=== PATIENT | female | born 1965 | race Caucasian/White ===

== ENCOUNTER → 2016-11-15 | Outpatient (CLI) | payer OTHER ==
[~2016-11-15] MED LIST: ALPR-411 PO; CONJ.6255 PO; ESCI5TAB PO
--- NOTE | 2016-11-15 16:40 | MAMMOGRAPHY REPORT ---
BILATERAL DIGITAL SCREENING MAMMOGRAM WITH CAD: 11/15/2016 CLINICAL HISTORY: Routine screening. Patient has no complaints. TECHNIQUE: Current study was also evaluated with a Computer Aided Detection (CAD) system. Bilateral CC and MLO views including implant displaced views were obtained. COMPARISON: Comparison is made to exams dated: 11/10/2014 mammogram, 08/05/2013 mammogram, 07/12/2012 mamm ogram, 06/26/2011 mammogram, 11/16/2009 mammogram, and 11/15/2015 mammogram - [facility]. BREAST COMPOSITION: The tissue of both breasts is heterogeneously dense, which may obscure small mas ses. FINDINGS: No suspicious masses, calcifications, or areas of architectural distortion are noted in ei ther breast. There has been no significant interval change compared to prior exams. Bilateral prepec samara saline implants are stable in appearance. IMPRESSION: ACR BI-RADS CATEGORY 2: BENIGN There is no mammographic evidence of malignancy. A 1 year screening mammogram is recommended. The pa tient will receive written notification of the results. Approximately 10% of breast cancers are not detected with mammography. A negative mammographic report should not delay biopsy if a clinically suggestive mass is present. Anabelle Michaels M.D. /:11/15/2016 14:37:05 Float Nurse: Jessa ESPINOZA(Livier)(M), [facility] letter sent: Normal 1/2 BI-RADS Code: ACR BI-RADS Category 2: Benign
== END | disposition home or self-care (01) ==
LOC: C.MAMM 14:00
PROVIDERS: ATTEND Obstetrics & Gynecology
DX: Z12.31 Encounter for screening mammogram for malignant neoplasm of breast (principal)

== ENCOUNTER → 2016-12-11 | Outpatient (CLI) | payer OTHER | END | disposition home or self-care (01) | LOC: C.PAPS 11:16 | PROVIDERS: ATTEND Obstetrics & Gynecology | DX: Z01.419 Encounter for gynecological examination (general) (routine) without abnormal findings (principal) ==

== ENCOUNTER → 2017-05-29 | Outpatient (CLI) | payer OTHER ==
[2017-05-29 10:03] LABS: BLOOD UREA NITROGEN 17 mg/dl (7-18); BUN/CREATININE RATIO 24.3 (10-20); CALCIUM 9.7 mg/dl (8.5-10.1); CARBON DIOXIDE 30 mmol/L (21-32); CHLORIDE 101 mmol/L (98-107); CREATININE 0.71 mg/dl (0.60-1.20); GLUCOSE 111 mg/dl (70-99); POTASSIUM 4.1 mmol/L (3.5-5.1); SODIUM 134 mmol/L (136-145)
== END | disposition home or self-care (01) ==
LOC: C.LAB1850 08:51
PROVIDERS: ATTEND Nurse Practitioner Adult Health
DX: I10 Essential (primary) hypertension (principal); F41.9 Anxiety disorder, unspecified

== ENCOUNTER → 2018-01-08 | Outpatient (CLI) | payer OTHER ==
--- NOTE | 2018-01-09 13:39 | MAMMOGRAPHY REPORT ---
BILATERAL DIGITAL SCREENING MAMMOGRAM TOMOSYNTHESIS WITH CAD: 01/08/2018 CLINICAL HISTORY: Patient presents for routine screening. S/P bilateral augmentation. TECHNIQUE: Bilateral CC and MLO views of the breasts with and without implant displacement views were obtained. Tomosynthesis was also performed on the implant displaced views. Current study was also evaluated with a Computer Aided Detection (CAD) system. COMPARISON: Comparison is made to exams dated: 11/15/2016 mammogram, 11/15/2015 mammogram, 11/10/2014 ma mmogram, 08/05/2013 mammogram, 07/12/2012 mammogram, and 06/26/2011 mammogram - [facility] er. BREAST COMPOSITION: The tissue of both breasts is heterogeneously dense, which may obscure small mass es. FINDINGS: Bilateral subglandular saline implants are intact. No new suspicious mass, architectural di stortion or cluster of microcalcifications is seen. IMPRESSION: ACR BI-RADS CATEGORY 1: NEGATIVE There is no mammographic evidence of malignancy. A 1 year screening mammogram is recommended.( [id number]) The patient will receive written notification of the results. Some breast cancers are not detected with mammography. A negative mammographic report should not joan y biopsy if a clinically suggestive mass is present. Melissa Andersen M.D. ay/:01/08/2018 17:36:42 Order Processing Specialist: RT Praful(Livier)(Ricardo), [facility] letter sent: Normal 1/2 BI-RADS Code: ACR BI-RADS Category 1: Negative
== END | disposition home or self-care (01) ==
LOC: C.MAMM 13:53
PROVIDERS: ATTEND Obstetrics & Gynecology
DX: Z12.31 Encounter for screening mammogram for malignant neoplasm of breast (principal)

== ENCOUNTER 2024-12-24 17:57 | Inpatient (IN) ==
[2024-12-24] MEDS: SODIUM CHLORIDE 0.9% 1,000 ML IV SCH (18:27)
--- NOTE | 2024-12-24 18:35 | XRay Report ---
Chest radiograph, one view History: Weakness Comparison: None Findings: Single AP view of the chest performed. No focal consolidation or pleural effusion. No pneumothorax. The cardiomediastinal silhouette is within normal limits. Normal pulmonary vascularity. No evidence for lymphadenopathy. No visualized bony or soft tissue abnormality. Impression: Normal chest radiograph Electronically signed by Ulisses Vera 12-24-2024 6:35 PM
[2024-12-24 18:44] LABS: Hematocrit (blood only) 39.8 % (37.0-47.0); Hemoglobin 14.1 g/dl (12.0-16.0); Immature Granulocytes # (auto) 0.02 K/uL (0.01-0.20); Immature Granulocytes % (auto) 0.3 %; Mean Corpuscular Hemoglobin 30.6 pg (25.0-34.0); Mean Corpuscular Volume 86.3 fL (80.0-100.0); Platelet Count 306 K/uL (130-400); RDW Standard Deviation 37.4 fL (36.4-46.3); Red Blood Count 4.61 M/uL (4.20-5.40); White Blood Count 6.00 K/ul (4.8-10.8)
--- NOTE | 2024-12-24 18:44 | Emergency Department Note ---
Impression & Plan Alcohol withdrawal, Vomiting, Tachycardia, Alcohol abuse ED Provider Note NAME: NIKOLAY BARNES AGE: 59 SEX: F : 1965 ARRIVES VIA: Walk-In INFORMANT: [Patient] ED PROVIDER(S): [Constantine Wharton MD] CHIEF COMPLAINT: Detox request HISTORY OF PRESENT ILLNESS: The patient is a 59-year-old female who presents to the ER asking for alcohol detox. She typically drinks about a bottle of wine a day. She states that her dog and as a result, she was stressed and began drinking 2-3 bottles of wine a day about 3 days ago. She also has been drinking vanilla extract. Her last drink of alcohol was about 6.5 hours ago. She has been vomiting, she feels shaky, she feels like she is going through withdrawal. She knows that she has to stop drinking and she presents for help. She is not having chest pain, there has been no fever, no diarrhea, no cough or congestion, no abdominal pain. The patient has been through medical detox before, the last time was a few years ago. PMHx/PSHx/Social Hx: See Below PHYSICAL EXAM: GENERAL: Patient is in no acute distress. Somewhat anxious. HEENT: No acute trauma, normocephalic atraumatic, mucous membranes moist, no nasal congestion. NECK: No stridor, no adenopathy, no meningismus, trachea is midline. LUNGS: Clear to auscultation bilaterally, no wheeze, no rhonchi, breath sounds equal. HEART: Tachycardic, regular rhythm, no murmurs. ABDOMEN: Soft, nontender, no peritonitis. EXTREMITIES: No cyanosis, full range of motion of all the joints without pain or difficulty. NEUROLOGIC: Oriented x 3, no acute motor or sensory deficits, no focal weakness. There is some generalized tremor noted. SKIN: No jaundice, no diaphoresis. DIFFERENTIAL DIAGNOSIS: Alcohol withdrawal, dehydration, electrolyte imbalance, renal or liver failure, among others. EMERGENCY DEPARTMENT PROCEDURES: MEDICAL DECISION MAKING: There is no leukocytosis or concerning anemia. There is a normal platelet count. No coagulopathy. No renal failure or significant electrolyte abnormality. No concerning liver enzyme elevation. ECG showed a sinus tachycardia, no ischemia or dysrhythmia. Cardiac enzyme testing x 1 is not consistent with acute cardiac injury. Patient appears to be in a euthyroid state. Chest x-ray did not show pneumonia or CHF. Alcohol level was elevated at 208. On exam, the patient was a bit hypertensive, she was tachycardic, she seemed to be shaky and anxious. She appeared to have signs of early alcohol withdrawal. Patient received IV saline, 1.5 L. She was given IV thiamine and IV folate. She was IV Zofran, IV Ativan. The patient does seem to be showing some improvement. Her tachycardia is improving. However, given the circumstances, given her previous hallucinations, I do think a hospital stay would be warranted. I spoke with the patient and case management, the on-call hospitalist was consulted. Prior/Outside records/notes reviewed: None ECG per my interpretation: Indication was tachycardia. The ECG shows a sinus tachycardia with a rate of 101. There is no ST elevation, no PVCs. There is some baseline artifact. QTc was 438. Continuous Cardiac Monitoring per my interpretation: An order was placed for continuous cardiac monitoring. The monitor shows a rate of 105 with sinus tachycardia. Imaging/x-ray results per my interpretation: Chest x-ray does not show mediastinal widening, pneumonia or CHF. Chronic Medical/Social conditions affecting care: History of alcoholism Care/Management discussed with: Case management, the on-call hospitalist. Level of care consideration(s): After review of the information above and other included data: --I believe the patient requires escalation of care to admission Critical Care Note: I have personally spent 46 minutes of critical care time in the direct management of this patient. This includes bedside care, interpretation of diagnostic studies, and testing, discussion with consultants, patient, and family members, and other required patient management activities. This 46 minutes is in excess of all separately billable procedures. DISPOSITION: Admission Past Med/Surg History Problem List (Updated 12/24/24 @ 20:05 by Constantine Wharton MD) Alcohol abuse (Acute) Tachycardia (Acute) Vomiting (Acute) Alcohol withdrawal (Acute) Urinary urgency Microscopic hematuria Routine gynecological examination LPRD (laryngopharyngeal reflux disease) (Chronic) Right hip pain Postmenopausal atrophic vaginitis (Acute) Rosacea (Acute) Anxiety (Acute) Hypertension (Acute) Rosacea Health care maintenance Medical History Laceration Concussion Head injury Fall Anxiety Hypertension Alcoholism Surgical History H/O breast augmentation Family History Grandfather (Maternal) Hypertension Mother Hypertension Father Melanoma Other No family history of adverse response to anesthesia No family history of bleeding disorder Denies family history of Ovarian cancer Prostate cancer Myocardial infarction Breast cancer Lung cancer Colorectal cancer Lung disease Stroke Social History Smoking Status: Never smoker Do You Dip or Chew Tobacco: No; Hx Alcohol Use: Yes (recovering alcoholic) Hx Substance Use: No Preferred Language: Maltese Visual Impairment: No Limitations Hearing Ability: Normal marital status: Current Living Situation: Spouse Current Living Situation Comment: and 4 dogs current occupational status: employed 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 Feels Safe at Home: Yes Childhood Exposure to Second-Hand Smoke: No Dental Care, Regularly: Yes Seatbelt Use: always Allergies Allergies Allergy/AdvReac Type Severity Reaction Status Date / Time codeine AdvReac Severe SEVERE N/V Verified 01/24/23 09:35 mirabegron AdvReac Intermediate Swelling Verified 01/24/23 09:41 of Lip/Tongue/Throat Home Meds Home Medications Medication Instructions Recorded Confirmed lifitegrast 5 % eye drops in a 1 drp OPB BID 12/16/22 01/24/23 dropperette (Xiidra) oxybutynin chloride 5 mg tablet 5 mg PO DAILY PRN bladder spasms 01/24/23 Previous Rx's Medication Instructions Recorded conj estrogen-medroxyprogesterone 1 tab PO DAILY #90 tabs 10/11/22 0.625 mg-2.5 mg tablet (Prempro) metronidazole 0.75 % topical cream See Rx Instructions topical BID 10/17/22 #45 grams lorazepam 0.5 mg tablet 0.5 mg PO DAILY PRN anxiety #20 12/26/22 tabs lorazepam 1 mg tablet (Ativan) 1 mg PO TID PRN spasms #9 tabs 01/09/23 cyclobenzaprine 10 mg tablet 10 mg PO Q8H PRN muscle spasm #30 01/24/23 tabs lisinopril 20 mg tablet 20 mg PO DAILY #90 tabs 01/24/23 hydroxyzine HCl 25 mg tablet 25 mg PO BID PRN anxiety #60 tabs 02/02/23 Results & Data (ED) Vital Signs Vital Signs - 24 hr 12/24/24 17:58 12/24/24 17:58 12/24/24 18:02 Temperature 36.6 C Temperature Source Temporal Artery Scan Pulse Rate 134 H Pulse Rate [Apical] 105 H Pulse Rhythm Pulse Rhythm [Apical] Regular Pulse Strength [Apical] Normal Respiratory Rate 19 24 Respiratory Effort / Characteristics Non-Labored Spontaneous Respiratory Depth Normal Respiratory Pattern Regular Blood Pressure [Right Arm] 157/98 H Blood Pressure Mean [Right Arm] 117 Blood Pressure Position [Right Arm] Lying Pulse Oximetry 98 98 97 Oxygen Delivery Method Room Air Room Air Room Air Sepsis Recent Fever Within 48 Hours No Sepsis New/Unexplained Change in Mental Status N/A Sepsis Action Taken by Nursing Physician Notified 12/24/24 18:08 12/24/24 18:26 Temperature Temperature Source Pulse Rate 99 H 104 H Pulse Rate [Apical] Pulse Rhythm Regular Pulse Rhythm [Apical] Pulse Strength [Apical] Respiratory Rate 15 Respiratory Effort / Characteristics Respiratory Depth Respiratory Pattern Blood Pressure [Right Arm] Blood Pressure Mean [Right Arm] Blood Pressure Position [Right Arm] Pulse Oximetry 99 Oxygen Delivery Method Room Air Sepsis Recent Fever Within 48 Hours Sepsis New/Unexplained Change in Mental Status Sepsis Action Taken by [facility] Medications Current Medication List: was personally reviewed by me Laboratory Data Attestation: I reviewed the patient's lab results. 12/24/24 18:26 12/24/24 18:26 Lab Results 12/24/24 12/24/24 Range/Units 18:26 18:59 WBC 6.00 (4.8-10.8) K/ul RBC 4.61 (4.20-5.40) M/uL Hgb 14.1 (12.0-16.0) g/dl Hct 39.8 (37.0-47.0) % MCV 86.3 (80.0-100.0) fL MCH 30.6 (25.0-34.0) pg MCHC 35.4 (32.0-36.0) g/dL RDW Std Deviation 37.4 (36.4-46.3) fL RDW Coeff of Fabian 11.9 (11.5-14.5) % Plt Count 306 (130-400) K/uL MPV 8.9 L (9.4-12.4) fL Immature Gran % (Auto) 0.3 % Neut % (Auto) 44.4 % Lymph % (Auto) 49.3 % [place] % (Auto) 5.0 % Eos % (Auto) 0.5 % Baso % (Auto) 0.5 % Neut # (Auto) 2.66 (1.40-6.50) K/uL Lymph # (Auto) 2.96 (1.20-3.40) K/uL [place] # (Auto) 0.30 (0.11-0.59) K/uL Eos # (Auto) 0.03 (0.00-0.50) K/uL Baso # (Auto) 0.03 (0.00-0.20) K/uL Immature Gran # (Auto) 0.02 (0.01-0.20) K/uL PT 10.9 (9.0-12.0) Seconds INR 1.0 (0.9-1.1) APTT 25 (21-31) Seconds PTT Ratio 0.9 Sodium 141 (136-145) mmol/L Potassium 3.6 (3.5-5.1) mmol/L Chloride 101 (98-107) mmol/L Carbon Dioxide 25 (21-32) mmol/L Anion Gap 15 H (3-11) BUN 11 (6-23) mg/dl Creatinine 0.83 (0.6-1.2) mg/dl Est Cr Clr Drug Dosing 64.0 ml/min eGFR 80.15 BUN/Creatinine Ratio 13.3 (10-20) Glucose 136 H (70-99(Fasting)) mg/dl Calcium 9.3 (8.6-10.3) mg/dl Magnesium 1.7 (1.7-2.4) mg/dl Total Bilirubin 0.3 (0.2-1.0) mg/dl AST 22 (13-39) U/L ALT 15 (7-52) U/L Alkaline Phosphatase 63 (34-104) U/L Troponin I High Sens 11.0 (0-14) pg/ml Total Protein 7.2 (6.0-8.3) gm/dl Albumin 4.2 (3.4-5.0) gm/dl Globulin 3.0 (2.5-4.0) gm/dl Albumin/Globulin Ratio 1.4 (0.9-2) TSH 1.870 (0.300-4.500) uIu/ml Ethyl Alcohol mg/dL 208.5 H (<10.0) mg/dl Administered Medications Discontinued Medications Sodium Chloride (Nss) 1,000 mls @ 999 mls/hr IV .Q1H1M HUGO Stop: 12/24/24 19:15 Last Admin: 12/24/24 18:27 Dose: 999 mls/hr Documented By: MPD Lorazepam (Lorazepam 2 Mg/1 Ml Vial) 2 mg IV NOW STA Stop: 12/24/24 18:09 Last Admin: 12/24/24 18:57 Dose: 2 mg Documented By: NRB Ondansetron HCl (Ondansetron Inj 2 Mg/Ml 2 Ml Vial) 4 mg IV NOW STA Stop: 12/24/24 18:36 Last Admin: 12/24/24 18:57 Dose: 4 mg Documented By: NRB Imaging Data Radiologist's Impression: Chest X-Ray 12/24/24 18:08 Chest radiograph, one view History: Weakness Comparison: None Findings: Single AP view of the chest performed. No focal consolidation or pleural effusion. No pneumothorax. The cardiomediastinal silhouette is within normal limits. Normal pulmonary vascularity. No evidence for lymphadenopathy. No visualized bony or soft tissue abnormality. Impression: Normal chest radiograph Electronically signed by Ulisses Vera 12-24-2024 6:35 PM Discharge Plan Visit Data Chief Complaint: Detox Request Stated Complaint: DETOX ED Provider: Constantine Wharton Discharge Problem: Alcohol withdrawal, Vomiting, Tachycardia, Alcohol abuse Patient Disposition: Admitted As Inpatient Condition: Serious Forms Stand Alone Forms: My [facility], Suicide Prevention Resources Prescriptions Prescriptions: No Action metronidazole 0.75 % cream See Rx Instructions TOP BID Qty: 45 2RF Rx Instructions: Apply to face and gently massage info affected area topical twice a day; hydroxyzine HCl 25 mg tablet 25 mg PO BID PRN (Reason: anxiety ) Qty: 60 1RF Prempro 0.625-2.5 mg tablet 1 tab PO DAILY Qty: 90 3RF Rx Instructions: Take 1 tablet by mouth daily. lorazepam 0.5 mg tablet 0.5 mg PO DAILY PRN (Reason: anxiety) Qty: 20 0RF oxybutynin chloride 5 mg tablet 5 mg PO DAILY PRN (Reason: bladder spasms) lisinopril 20 mg tablet 20 mg PO DAILY Qty: 90 3RF cyclobenzaprine 10 mg tablet 10 mg PO Q8H PRN (Reason: muscle spasm) Qty: 30 0RF lorazepam [Ativan] 1 mg tablet 1 mg PO TID PRN (Reason: spasms) Qty: 9 0RF Xiidra 5 % dropperette 1 drp OPB BID Referrals Referrals: PCP,NO [Physician] - Discharge Problem: Alcohol withdrawal Qualifiers: Complication of substance-induced condition: with unspecified complication Q ualified Code(s): F10.939 - Alcohol use, unspecified with withdrawal, unspecified Vomiting Qualifiers: Vomiting type: unspecified Nausea presence: with nausea Qualified Code(s): R 11.2 - Nausea with vomiting, unspecified
[2024-12-24] MEDS: ONDANSETRON INJ 2 MG/ML 2 ML VIAL IV STA (18:57)
[2024-12-24 19:01] LABS: Alanine Aminotransferase 15.0 U/L (7-52); Albumin Globulin Ratio 1.4 (0.9-2); Alkaline Phosphatase 63.0 U/L (34-104); Anion Gap 15.0 (3-11); Bilirubin,Total 0.3 mg/dl (0.2-1.0); Blood Urea Nitrogen 11.0 mg/dl (6-23); Calcium 9.3 mg/dl (8.6-10.3); Carbon Dioxide 25.0 mmol/L (21-32); Chloride 101.0 mmol/L (98-107); Creatinine Clr Calc Pharmacy 64.0 ml/min; Globulin 3.0 gm/dl (2.5-4.0); Glucose 136.0 mg/dl (70-99(Fasting)); Magnesium 1.7 mg/dl (1.7-2.4); Potassium 3.6 mmol/L (3.5-5.1); Sodium 141.0 mmol/L (136-145); Total Protein 7.2 gm/dl (6.0-8.3)
[2024-12-24 19:16] LABS: Thyroid Stimulating Hormone 1.87 uIu/ml (0.300-4.500)
[2024-12-24 19:17] LABS: INR 1.0 (0.9-1.1); Partial Thromboplastin Time 25 Seconds (21-31); Prothrombin Time 10.9 Seconds (9.0-12.0)
[2024-12-24] MEDS: THIAMINE HCL 100 MG in SYRINGE 9 ML IV STA (20:04)
[2024-12-24] MEDS: FOLIC ACID 1 MG in SYRINGE 9.8 ML IV STA (20:04)
[2024-12-24] MEDS: SODIUM CHLORIDE 0.9% 500 ML IV ONE (20:04)
--- NOTE | 2024-12-24 20:52 | History & Physical Report ---
Date of Service December 24, 2024 Assessment & Plan (1) Alcoholism: Plan: 59-year-old female with past medical history significant for hypertension, overactive bladder, bladder spasm, anxiety, ongoing alcoholism comes for alcohol detox request. Patient says usually drinks 5 to 6 glasses of wine daily but her dog about 3 days ago and since then she is drinking whole big bottle of wine daily and she want to get over it so came to the hospital for detox req uest. Patient says she was in alcohol rehab in 2003 and also in 2022. Appetite has been poor. Denies any headache. No dizziness. Vision is okay currently. Has some runny nose. No sore throat. No cough. No fevers. No difficulty swallowing. No chest pain. No shortness of breath. Was nauseous and had vomiting today. No abdominal pain. Normal bowel and bladder movements. Denies blood in stools or black stools. No rashes. Ambulates okay. Hemodynamics are okay. Alcoholism Request for detox Usually drinks 5 to 6 glasses of wine daily but last 3 days drinking heavily since her dog Will place on alcohol withdrawal protocol with gabapentin and IV Ativan as needed Close monitor med/telemetry IV thiamine and folic acid. P.o. multivitamins History of anxiety Citalopram Hypertension On amlodipine/benazepril Will monitor DVT prophylaxis Lovenox Disposition Med/telemetry Full code. History of Present Illness Chief Complaint: Alcohol detox request Primary Care Provider: Bay Messer MD 59-year-old female with past medical history significant for hypertension, overactive bladder, bladder spasm, anxiety, ongoing alcoholism comes for alcohol detox request. Patient says usually drinks 5 to 6 glasses of wine daily but her dog about 3 days ago and since then she is drinking whole big bottle of wine daily and she want to get over it so came to the hospital for detox request. Patient says she was in alcohol rehab in 2003 and also in 2022. Appetite has been poor. Denies any headache. No dizziness. Vision is okay currently. Has some runny nose. No sore throat. No cough. No fevers. No di fficulty swallowing. No chest pain. No shortness of breath. Was nauseous and had vomiting today. No abdominal pain. Normal bowel and bladder movements. Denies blood in stools or black stools. No rashes. Ambulates okay. Hemodynamics are okay. Past medical history. As mentioned above. Past surgical history. Breast enhancement. Colonoscopy. Cystourethroscopy. Dental implants. Social history. . No smoking. Ongoing alcoholism. No drug use. Family history. No family history in file. Allergies Allergy/AdvReac Type Severity Reaction Status Date / Time codeine AdvReac Severe SEVERE N/V Verified 12/24/24 20:52 mirabegron AdvReac Intermediate Swelling Verified 12/24/24 20:52 of Lip/Tongue/Throat Home Medications Medication Instructions Recorded Confirmed Type amlodipine 10 mg-benazepril 20 mg 1 cap PO DAILY 12/24/24 12/24/24 History capsule (Lotrel) citalopram 10 mg tablet 10 mg PO DAILY 12/24/24 12/24/24 History conj estrogen-medroxyprogesterone 1 tab PO DAILY 12/24/24 12/24/24 History 0.625 mg-2.5 mg tablet (Prempro) lifitegrast 5 % eye drops in a 1 drp ophthalmic (eye) BID 12/24/24 12/24/24 History dropperette (Xiidra) lorazepam 0.5 mg tablet 0.5 mg PO DAILY PRN Anxiety 12/24/24 12/24/24 History Past Med/Surg History Problem List (Updated 12/24/24 @ 20:50 by Ludwig Arciniega MD) Alcoholism Alcohol abuse (Acute) Tachycardia (Acute) Vomiting (Acute) Alcohol withdrawal (Acute) Urinary urgency Microscopic hematuria Routine gynecological examination LPRD (laryngopharyngeal reflux disease) (Chronic) Right hip pain Postmenopausal atrophic vaginitis (Acute) Rosacea (Acute) Anxiety (Acute) Hypertension (Acute) Rosacea Health care maintenance Medical History Laceration Concussion Head injury Fall Anxiety Hypertension Alcoholism Surgical History H/O breast augmentation Family History Grandfather (Maternal) Hypertension Mother Hypertension Father Melanoma Other No family history of adverse response to anesthesia No family history of bleeding disorder Denies family history of Ovarian cancer Prostate cancer Myocardial infarction Breast cancer Lung cancer Colorectal cancer Lung disease Stroke Social History Smoking Status: Never smoker Second Hand Exposure: No; Do You Dip or Chew Tobacco: No; Tobacco Cessation Education Requested by Patient: No Hx Alcohol Use: Yes Alcohol type: wine Hx Substance Use: No Preferred Language: Gibraltarian Communication Ability: Effective Visual Impairment: No Limitations Hearing Ability: Normal Condenser Tube Tender Required: No Beliefs That Will Affect Care: None marital status: Current Living Situation: Spouse Current Living Situation Comment: and 4 dogs current occupational status: employed 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 Head- atraumatic Eyes- PERRL. ENT- oropharynx clear Neck- supple, no JVD. Lungs- clear to auscultation no wheezing or crackles Heart- regular rate and rhythm; no murmur, no gallop. Abdomen- normal bowel sounds, soft, nontender, no distension Extremities- no pretibial edema, no erythema seen Neuro- alert, oriented PERRL, no facial palsy; no dysarthria; moves extremities Results & Data Results & Data Vital Signs (Past 12 Hours) Vital Signs Temp Pulse Pulse Resp BP Pulse Ox O2 Del Method 12/24/24 20:00 100 H 18 150/88 H 12/24/24 18:26 104 H 12/24/24 18:08 99 H 15 99 Room Air 12/24/24 18:02 36.6 C 134 H 24 97 Room Air 12/24/24 17:58 105 H 19 157/98 H 98 Room Air 12/24/24 17:58 98 Room Air Diagnostic Findings Laboratory Results WBC 6.00 K/ul (4.8-10.8) 12/24/24 18:26 RBC 4.61 M/uL (4.20-5.40) 12/24/24 18:26 Hgb 14.1 g/dl (12.0-16.0) 12/24/24 18:26 Hct 39.8 % (37.0-47.0) 12/24/24 18: MCV 86.3 fL (80.0-100.0) 12/24/24 18: MCH 30.6 pg (25.0-34.0) 12/24/24 18: MCHC 35.4 g/dL (32.0-36.0) 12/24/24 18: RDW Std Deviation 37.4 fL (36.4-46.3) 12/24/24 18: RDW Coeff of Fabian 11.9 % (11.5-14.5) 12/24/24 18: Plt Count 306 K/uL (130-400) 12/24/24 18: MPV 8.9 fL (9.4-12.4) L 12/24/24 18: Immature Gran % (Auto) 0.3 % 12/24/24 18: Neut % (Auto) 44.4 % 12/24/24 18: Lymph % (Auto) 49.3 % 12/24/24 18: [place] % (Auto) 5.0 % 12/24/24 18: Eos % (Auto) 0.5 % 12/24/24 18: Baso % (Auto) 0.5 % 12/24/24 18: Neut # (Auto) 2.66 K/uL (1.40-6.50) 12/24/24 18: Lymph # (Auto) 2.96 K/uL (1.20-3.40) 12/24/24 18: [place] # (Auto) 0.30 K/uL (0.11-0.59) 12/24/24 18: Eos # (Auto) 0.03 K/uL (0.00-0.50) 12/24/24 18: Baso # (Auto) 0.03 K/uL (0.00-0.20) 12/24/24 18: Immature Gran # (Auto) 0.02 K/uL (0.01-0.20) 12/24/24 18: PT 10.9 Seconds (9.0-12.0) 12/24/24 18: INR 1.0 (0.9-1.1) 12/24/24 18: APTT 25 Seconds (21-31) 12/24/24 18:26 PTT Ratio 0.9 12/24/24 18:26 Sodium 141 mmol/L (136-145) 12/24/24 18:26 Potassium 3.6 mmol/L (3.5-5.1) 12/24/24 18:26 Chloride 101 mmol/L (98-107) 12/24/24 18:26 Carbon Dioxide 25 mmol/L (21-32) 12/24/24 18:26 Anion Gap 15 (3-11) H 12/24/24 18:26 BUN 11 mg/dl (6-23) 12/24/24 18:26 Creatinine 0.83 mg/dl (0.6-1.2) 12/24/24 18: Est Cr Clr Drug Dosing 64.0 ml/min 12/24/24 18:26 eGFR 80.15 12/24/24 18:26 BUN/Creatinine Ratio 13.3 (10-20) 12/24/24 18:26 Glucose 136 mg/dl (70-99(Fasting)) H 12/24/24 18:26 Calcium 9.3 mg/dl (8.6-10.3) 12/24/24 18:26 Magnesium 1.7 mg/dl (1.7-2.4) 12/24/24 18:26 Total Bilirubin 0.3 mg/dl (0.2-1.0) 12/24/24 18:26 AST 22 U/L (13-39) 12/24/24 18:26 ALT 15 U/L (7-52) 12/24/24 18:26 Alkaline Phosphatase 63 U/L (34-104) 12/24/24 18:26 Troponin I High Sens 11.0 pg/ml (0-14) 12/24/24 18:26 Total Protein 7.2 gm/dl (6.0-8.3) 12/24/24 18:26 Albumin 4.2 gm/dl (3.4-5.0) 12/24/24 18:26 Globulin 3.0 gm/dl (2.5-4.0) 12/24/24 18:26 Albumin/Globulin Ratio 1.4 (0.9-2) 12/24/24 18:26 TSH 1.870 uIu/ml (0.300-4.500) 12/24/24 18:26 Ethyl Alcohol mg/dL 208.5 mg/dl (<10.0) H 12/24/24 18:59 Impressions Chest X-Ray 12/24/24 18:08 Chest radiograph, one view History: Weakness Comparison: None Findings: Single AP view of the chest performed. No focal consolidation or pleural effusion. No pneumothorax. The cardiomediastinal silhouette is within normal limits. Normal pulmonary vascularity. No evidence for lymphadenopathy. No visualized bony or soft tissue abnormality. Impression: Normal chest radiograph Electronically signed by Ulisses Vera 12-24-2024 6:35 PM ECG Additional Comments: ECG. Sinus tachycardia rate of 101. Possible left atrial enlargement. No previous EKGs available. QTc 438 Code Status & VTE Plan VTE Prophylaxis Plan VTE Prophylaxis will be ordered: Yes
[2024-12-24] MEDS ORDERED: Ativan IV Alcohol Withdrawal--Active Protocol IV PRN (21:32)
[2024-12-24] MEDS ORDERED: GABAPENTIN 1200MG ALCOHOL WITHDRAWAL LOAD PO STA (21:32)
[2024-12-24] MEDS ORDERED: ONDANSETRON INJ 2 MG/ML 2 ML VIAL IV PRN (21:32)
[2024-12-24] MEDS ORDERED: ACETAMINOPHEN 325 MG TAB PO PRN (21:32)
[2024-12-24] MEDS ORDERED: ARTIFICIAL TEARS OP PRN (21:49)
[2024-12-24] MEDS: ENOXAPARIN INJ 40 MG/0.4 ML SYR SQ SCH (21:56)
[2024-12-24] MEDS: GABAPENTIN 600 MG TAB PO ONE (21:56)
[2024-12-24 22:49] LABS: Appearance Urine Clear (Clear); Bacteria Urine Automated None Seen (None Seen); Cast Urine Automated 0-2 /lpf (0-2); Epithelial Cell Urine Auto 0-2 /hpf (0-2); Glucose Urine UA Negative (Negative); RBC Urine Automated 0-2 /hpf (0-2); WBC Urine Automated 0-5 /hpf (0-5)
[2024-12-24 23:23] LABS: Amphetamines+Metham, Urine Neg (Neg); MDMA (Ecstacy), Urine Neg (Neg); Marijuana, Urine Neg (Neg)
[2024-12-25] MEDS: GABAPENTIN 600 MG TAB PO SCH ×2 (02:11→17:10)
[2024-12-25 06:51] LABS: Hematocrit (blood only) 40.2 % (37.0-47.0); Hemoglobin 13.8 g/dl (12.0-16.0); Mean Corpuscular Hemoglobin 30.5 pg (25.0-34.0); Mean Corpuscular Volume 88.7 fL (80.0-100.0); Platelet Count 247 K/uL (130-400); RDW Standard Deviation 38.3 fL (36.4-46.3); Red Blood Count 4.53 M/uL (4.20-5.40); White Blood Count 6.92 K/ul (4.8-10.8)
[2024-12-25 07:10] LABS: Alanine Aminotransferase 13.0 U/L (7-52); Alkaline Phosphatase 51.0 U/L (34-104); Anion Gap 8.0 (3-11); Bilirubin,Total 0.6 mg/dl (0.2-1.0); Blood Urea Nitrogen 10.0 mg/dl (6-23); Calcium 8.7 mg/dl (8.6-10.3); Carbon Dioxide 29.0 mmol/L (21-32); Chloride 103.0 mmol/L (98-107); Creatinine Clr Calc Pharmacy 75.9 ml/min; Glucose 94.0 mg/dl (70-99(Fasting)); Magnesium 1.6 mg/dl (1.7-2.4); Potassium 3.4 mmol/L (3.5-5.1); Sodium 140.0 mmol/L (136-145); Total Protein 6.3 gm/dl (6.0-8.3)
[2024-12-25 07:12] LABS: Immature Granulocytes # (auto) 0.02 K/uL (0.01-0.20); Immature Granulocytes % (auto) 0.3 %
[2024-12-25 07:43] LABS: Vitamin B12 191.0 pg/ml (180-914)
[2024-12-25] MEDS: CITALOPRAM 20 MG TAB PO SCH (09:09)
[2024-12-25] MEDS: THIAMINE HCL 100 MG in SYRINGE 9 ML IV SCH (09:10)
[2024-12-25] MEDS: FOLIC ACID 1 MG in SYRINGE 9.8 ML IV SCH (09:10)
[2024-12-25] MEDS: MULTIVITAMIN TAB PO SCH (09:10)
[2024-12-25] MEDS: POTASSIUM CHLORIDE CRTAB 20 MEQ TABCR PO STA (09:29)
[2024-12-25] MEDS: MAGNESIUM SULFATE / D5W 1 GM/100 ML BAG IV SCH (09:29)
[2024-12-25] MEDS: CYANOCOBALAMIN (B-12) 500 MCG TABLET PO SCH (11:05)
[2024-12-25] MEDS: ENALAPRIL MALEATE 10 MG TAB PO SCH (11:31)
--- NOTE | 2024-12-25 12:16 | Hospitalist Progress Note ---
Date of Service December 25, 2024 Assessment & Plan (1) Alcoholism: Plan: 59-year-old female with past medical history significant for hypertension, overactive bladder, bladder spasm, anxiety, ongoing alcoholism comes for alcohol detox request. 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 Patient says she was in alcohol rehab in 2003 and also in 2022. Alcoholism Risk of severe withdrawal reaction came in w/ request for detox Usually drinks 5 to 6 glasses of wine daily but last 3 days drinking heavily since her dog Last drink 12/24 afternoon prior to coming to the hospital. c/w alcohol withdrawal protocol with gabapentin and IV Ativan as needed Close monitor med/telemetry IV thiamine and folic acid. P.o. multivitamins Vitamin B12 low normal, start B12 supplement. repeat level in 3 months. Monitor and repelte lytes: Mg and KCL repleted today. History of anxiety: c/w home Citalopram Hypertension: On amlodipine/benazepril, elevated likely iso alc withdrawal reaction. prn bp med added, Will monitor DVT prophylaxis: Lovenox Disposition: Med/telemetry Full code. Admission and Anticipated Discharge Date Admission Date: December 24, 2024 Subjective Patient was seen and examined at bedside. Patient was lying in bed, on room air, NAD, fine tremors of bilateral hands noted. Patient reports last alcohol drink 12/24 afternoon. Patient reports lately she has been having increased alcohol intake and would like to detox. Patient otherwise denies any nausea/vomiting/diarrhea. Physical Exam Physical Exam: General- Not in distress. Head- atraumatic Eyes- PERRL. ENT- oropharynx clear Neck- supple, no JVD. Lungs- clear to auscultation no wheezing or crackles Heart- regular rate and rhythm; no murmur, no gallop. Abdomen- normal bowel sounds, soft, nontender, no distension Extremities- no pretibial edema, no erythema seen, tremors b/l hands Neuro- alert, oriented PERRL, no facial palsy; no dysarthria; moves extremities Results & Data Results & Data Vital Signs (Past 12 Hours) Vital Signs Temp Pulse Pulse Resp BP Pulse Ox O2 Del Method 12/25/24 11:18 36.8 C 85 18 181/99 H 96 Room Air 12/25/24 07:26 37.0 C 79 18 175/95 H 97 Room Air 12/25/24 05:50 94 H 12/25/24 02:40 36.8 C 79 16 162/89 H 97 Room Air
[2024-12-25 12:41] LABS: Folate (Folic Acid),Ser orPlas 16.13 ng/ml (>5.38)
[2024-12-25] MEDS: LABETALOL HCL IV 5 MG/ML 20ML IV PRN (13:20)
[2024-12-25] MEDS: LORazepam 0.5 MG TAB PO STA (23:11)
[2024-12-26 06:40] LABS: Hematocrit (blood only) 37.0 % (37.0-47.0); Hemoglobin 13.1 g/dl (12.0-16.0); Mean Corpuscular Hemoglobin 31.2 pg (25.0-34.0); Mean Corpuscular Volume 88.1 fL (80.0-100.0); Platelet Count 220 K/uL (130-400); RDW Standard Deviation 37.9 fL (36.4-46.3); Red Blood Count 4.20 M/uL (4.20-5.40); White Blood Count 4.82 K/ul (4.8-10.8)
[2024-12-26 07:08] LABS: Anion Gap 8.0 (3-11); Blood Urea Nitrogen 9.0 mg/dl (6-23); Calcium 9.0 mg/dl (8.6-10.3); Carbon Dioxide 26.0 mmol/L (21-32); Chloride 105.0 mmol/L (98-107); Creatinine Clr Calc Pharmacy 87.1 ml/min; Glucose 109.0 mg/dl (70-99(Fasting)); Magnesium 2.0 mg/dl (1.7-2.4); Potassium 3.5 mmol/L (3.5-5.1); Sodium 139.0 mmol/L (136-145)
--- NOTE | 2024-12-26 12:12 | Hospitalist Progress Note ---
Date of Service December 26, 2024 Assessment & Plan (1) Alcoholism: Plan: 59-year-old female with past medical history significant for hypertension, overactive bladder, bladder spasm, anxiety, ongoing alcoholism comes for alcohol detox request. 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 Patient says she was in alcohol rehab in 2003 and also in 2022. Alcoholism Risk of severe withdrawal reaction came in w/ request for detox Usually drinks 5 to 6 glasses of wine daily but last 3 days drinking heavily since her dog Last drink 12/24 afternoon prior to coming to the hospital. c/w alcohol withdrawal protocol with gabapentin and IV Ativan as needed Close monitor med/telemetry IV thiamine and folic acid. P.o. multivitamins Vitamin B12 low normal, c/w B12 supplement. repeat level in 3 months. Monitor and replete lytes: Mg and KCL wnl today. History of anxiety: c/w home Citalopram Hypertension: On amlodipine/benazepril, elevated likely iso alc withdrawal reaction. prn bp med added, Will monitor DVT prophylaxis: Lovenox Disposition: Med/telemetry Full code. Admission and Anticipated Discharge Date Admission Date: December 24, 2024 Subjective Patient was seen and examined at bedside. Patient was lying in bed, on room air, NAD, no tremors of hand noted today. Patient reports last alcohol drink 12/24 afternoon. Pt not interested in inpt alc rehab at the moment. Patient otherwise denies any nausea/vomiting/diarrhea. Physical Exam Physical Exam: General- Not in distress. Head- atraumatic Eyes- PERRL. ENT- oropharynx clear Neck- supple, no JVD. Lungs- clear to auscultation no wheezing or crackles Heart- regular rate and rhythm; no murmur, no gallop. Abdomen- normal bowel sounds, soft, nontender, no distension Extremities- no pretibial edema, no erythema seen, tremors b/l hands not noted today. Neuro- alert, oriented PERRL, no facial palsy; no dysarthria; moves extremities Results & Data Results & Data Vital Signs (Past 12 Hours) Vital Signs Temp Pulse Pulse Resp BP Pulse Ox O2 Del Method 12/26/24 12:00 36.7 C 91 H 16 128/85 97 Room Air 12/26/24 07:38 36.5 C 88 16 149/95 H 97 Room Air 12/26/24 05:38 89 12/26/24 03:00 36.4 C L 81 18 147/89 H 98 Room Air
[2024-12-26] MEDS: GABAPENTIN 600 MG TAB PO SCH (21:05)
[2024-12-26] MEDS: MELATONIN 3 MG TAB PO SCH (21:05)
--- NOTE | 2024-12-27 06:00 | Electrocardiogram Report ---
Test Reason : Blood Pressure : */* mmHG Vent. Rate : 101 BPM Atrial Rate : 101 BPM P-R Int : 140 ms QRS Dur : 82 ms QT Int : 338 ms P-R-T Axes : 55 23 59 degrees QTcB Int : 438 ms Sinus tachycardia Possible Left atrial enlargement Borderline ECG No previous ECGs available Confirmed by Johnny eDe ([id number]) on 12/27/2024 5:59:55 AM Referred By: Confirmed By: Johnny Dee
[2024-12-27 06:44] LABS: Anion Gap 7.0 (3-11); Blood Urea Nitrogen 12.0 mg/dl (6-23); Calcium 9.2 mg/dl (8.6-10.3); Carbon Dioxide 27.0 mmol/L (21-32); Chloride 106.0 mmol/L (98-107); Creatinine Clr Calc Pharmacy 77.0 ml/min; Glucose 109.0 mg/dl (70-99(Fasting)); Magnesium 2.0 mg/dl (1.7-2.4); Potassium 3.8 mmol/L (3.5-5.1); Sodium 140.0 mmol/L (136-145)
[2024-12-27] MEDS: FOLIC ACID 1 MG TAB PO SCH (10:17)
[2024-12-27] MEDS: THIAMINE HCL 100 MG TAB PO SCH (10:17)
[2024-12-27 11:30] VITALS: BP 153/101; PULSE 80; RESP 20; TEMP 98.6; O2SAT 96
--- NOTE | 2024-12-27 12:06 | Discharge Summary ---
Date of Service December 27, 2024 Admission HPI Per Admitting Provider 59-year-old female with past medical history significant for hypertension, overactive bladder, bladder spasm, anxiety, ongoing alcoholism comes for alcohol detox request. Patient says usually drinks 5 to 6 glasses of wine daily but her dog about 3 days ago and since then she is drinking whole big bottle of wine daily and she want to get over it so came to the hospital for detox request. Patient says she was in alcohol rehab in 2003 and also in 2022. Appetite has been poor. Denies any headache. No dizziness. Vision is okay currently. Has some runny nose. No sore throat. No cough. No fevers. No d ifficulty swallowing. No chest pain. No shortness of breath. Was nauseous and had vomiting today. No abdominal pain. Normal bowel and bladder movements. Denies blood in stools or black stools. No rashes. Ambulates okay. Hemodynamics are okay. Past medical history. As mentioned above. Past surgical history. Breast enhancement. Colonoscopy. Cystourethroscopy. Dental implants. Social history. . No smoking. Ongoing alcoholism. No drug use. Family history. No family history in file. Admission Exam Per Admitting Provider General- Not in distress. Head- atraumatic Eyes- PERRL. ENT- oropharynx clear Neck- supple, no JVD. Lungs- clear to auscultation no wheezing or crackles Heart- regular rate and rhythm; no murmur, no gallop. Abdomen- normal bowel sounds, soft, nontender, no distension Extremities- no pretibial edema, no erythema seen Neuro- alert, oriented PERRL, no facial palsy; no dysarthria; moves extremities Principal Diagnosis Alcohol abuse Mild alcohol withdrawal reaction Discharge Exam General- Not in distress. Head- atraumatic Eyes- PERRL. ENT- oropharynx clear Neck- supple, no JVD. Lungs- clear to auscultation no wheezing or crackles Heart- regular rate and rhythm; no murmur, no gallop. Abdomen- normal bowel sounds, soft, nontender, no distension Extremities- no pretibial edema, no erythema seen, no tremors Neuro- alert, oriented PERRL, no facial palsy; no dysarthria; moves extremities Discharge Data Allergies Allergy/AdvReac Type Severity Reaction Status Date / Time codeine AdvReac Severe SEVERE N/V Verified 12/24/24 20:52 carlos AdvReac Intermediate Swelling Verified 12/24/24 20:52 of Lip/Tongue/Throat Consultations 12/24/24 19:58 ED Decision to Admit Stat Hospital Course (1) Alcoholism: 59-year-old female with past medical history significant for hypertension, overactive bladder, bladder spasm, anxiety, ongoing alcoholism comes for alcohol detox request. 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 Patient says she was in alcohol rehab in 2003 and also in 2022. Alcoholism Risk of severe withdrawal reaction, ruled out came in w/ request for detox Usually drinks 5 to 6 glasses of wine daily but last 3 days drinking heavily since her dog Last drink 12/24 afternoon prior to coming to the hospital. Noted to have awss score around 1 most of the time while in here, no tremors, Heart rate has been stable. Pt denies history of severe alcohol withdrawal reaction in the past/or DTs/ or Seizures. Pt has not required any prn ativan while in hospital. c/w thiamine, multivitamins, b12 supplement and folate. Pt advised to return to hospital if w/ any s/s of withdrawal reaction/Pt was taught what to look for. Pt voiced understanding. Pt has business [employer], hence would like to go home. Pt will be discharged w/ remaining doses of gabapentin taper. History of anxiety: c/w home Citalopram Hypertension: On amlodipine/benazepril, elevated likely iso alc withdrawal reaction. Pt advised to maintain a log of her home BP measurements to take to PCP office for ongoing evaluation. DVT prophylaxis: Lovenox Disposition: Med/telemetry Full code. Patient is being discharged home with following instructions at the point of discharge: Follow-up with your primary care physician within a week time and likely you will need labs CBC/CMP/magnesium/phosphorus. You will be discharged on gabapentin to complete the course for alcohol withdrawal reaction. Measure your blood pressure twice a day, maintain a log to take to your primary care physician for ongoing management/evaluation of your blood pressure. Recommend that you coordinate with outpatient resources to maintain abstinence from alcohol. If you have any tremulousness/sweating/nausea/increasing anxiety/tremors/seizures or other signs of alcohol withdrawal reaction, report to emergency immediately. Your vitamin B12 level was low normal, you will be started on vitamin B12 supplement, have your PCP office follow up on the repeat level in about 2 months time. Take your medications as prescribed. Please make sure that you are able to get your medications today by calling your pharmacy before you leave the hospital so that your treatment continuity is not broken. Home Health Attestation I certify that this patient is under my care and that I, or a physicians virtual assistant for advertisers working with me, had a face to-face encounter that meets the home health [id number] encounter requirements with this patient. The encounter with the patient was in whole, or in part, for the following medical condition, which is the primary reason for home health care (list medical condition): I certify that, based on my findings, the following services are medically necessary home health services: My clinical findings support the need for the above services because: Further, I certify that my clinical findings support that this patient is homebound (i.e. absences from home require considerable and taxing effort and are for medical reasons or mu-ism services or infrequently or of short duration when for other reasons) because: Certification for Home Health Services: Based on the above findings, I certify that this patient is confined to the home and needs intermittent jail care, physical therapy and/or speech therapy or continues to need occupational therapy. The patient is under my care, and I have initiated the establishment of the plan of care. This patient will be followed by a physician who will periodically review the plan of care. Total Time Total Time Spent Total Time Spent (In Minutes): 45 Discharge Plan Discharge Items Patient Disposition: Home - Self-Care Reason For Visit: ALCOHOL WITHDRAWAL Discharge Diagnosis: Alcohol abuse Mild alcohol withdrawal reaction Condition on Discharge: Serious Activity: Resume your previous activity Non-emergency contact: Primary Care Provider Call non-emergency contact if: you have any medication questions and your symptoms worsen Follow-up/Referrals: Bay Messer MD [Primary Care Provider] - Diet: Heart Healthy Addtl Attending Provider Instructions: Follow-up with your primary care physician within a week time and likely you will need labs CBC/CMP/magnesium/phosphorus. You will be discharged on gabapentin to complete the course for alcohol withdrawal reaction. Measure your blood pressure twice a day, maintain a log to take to your primary care physician for ongoing management/evaluation of your blood pressure. Recommend that you coordinate with outpatient resources to maintain abstinence from alcohol. If you have any tremulousness/sweating/nausea/increasing anxiet y/tremors/seizures or other signs of alcohol withdrawal reaction, report to emergency immediately. Your vitamin B12 level was low normal, you will be started on vitamin B12 supplement, have your PCP office follow up on the repeat level in about 2 months time. Take your medications as prescribed. Please make sure that you are able to get your medications today by calling your pharmacy before you leave the hospital so that your treatment continuity is not broken. Pending Studies at Discharge: No Stand-Alone Forms: My [facility], Smoking Cessation Medications and DC Order Prescriptions: New gabapentin 600 mg Tablet 600 mg PO Q24H 1 Days Qty: 1 0RF thiamine HCl (vitamin B1) 100 mg Tablet 100 mg PO QAM 30 Days Qty: 30 0RF cyanocobalamin (vitamin B-12) 500 mcg Tablet 500 mcg PO QAM 30 Days Qty: 30 0RF folic acid 1 mg Tablet 1 mg PO QAM Qty: 30 0RF multivitamin with folic acid [Daily-Maggy (with folic acid)] 400 mcg Tablet 1 tab PO QAM Qty: 30 0RF Continued citalopram 10 mg Tablet 10 mg PO DAILY Prempro 0.625-2.5 mg Tablet 1 tab PO DAILY amlodipine-benazepril [Lotrel] 10-20 mg Capsule 1 cap PO DAILY Xiidra 5 % Dropperette 1 drp OPHTHALMIC (EYE) BID Rx Instructions: administer approximately 12 hours apart lorazepam 0.5 mg tablet 0.5 mg PO DAILY PRN (Reason: Anxiety) Rx Instructions: BEEN A COUPLE OF MONTHS KEEPS ON HAND Discharge Orders: Discharge Order (Routine); Ordered 12/27/24 Ordered By: Rufina Soto Admission Data Admit Date/Time: 12/24/24 20:42 Attending Provider: Rufina Soto Admit Provider: Ludwig Arciniega Primary Care Provider: Bay Messer Other Providers: Ludwig Arciniega
[2024-12-28] MEDS ORDERED: GABAPENTIN 600 MG TAB PO SCH (08:45)
== END 2024-12-27 13:30 | disposition home or self-care (01) | DRG 897 ==
LOC: ED 17:57 → 2N 20:42